=== PATIENT | female | born 1940 | race Caucasian/White ===

== ENCOUNTER 2023-09-05 20:45 | Inpatient (IN) | payer MEDICARE ==
[~2023-09-05] VITALS: Ht 160 cm; Wt 61.0 kg
[~2023-09-05 20:45] MED LIST: AMAN100 PO; CARBIDOPA-LEVO1 EA15 PO; FAMO20 PO; LEVO-T75 MC1 PO; OXYC5 PO; ROPINIROLE HCL2 M1 PO; SULTRIDS PO; ZOLOFT10013 PO
[2023-09-05] MEDS ORDERED: NS 1,000 ML IV SCH (23:50)
[2023-09-06 00:14] LABS: BASOPHILS ABSOLUTE AUTO 0.13 K/mm3 (0.00-0.23); BASOPHILS PERCENT AUTO 1 % (0-2); EOSINOPHILS ABSOLUTE AUTO 0.27 K/mm3 (0.00-0.68); EOSINOPHILS PERCENT AUTO 3 % (0-6); Hematocrit 39.2 % (33.0-51.0); Hemoglobin 12.5 g/dL (11.5-16.0); IMMATURE GRAN ABSOLUTE AUTO 0.07 K/mm3 (0.00-0.10); IMMATURE GRAN PERCENT AUTO 1 % (0-1); LYMPHOCYTES ABSOLUTE AUTO 1.69 K/mm3 (0.84-5.20); LYMPHOCYTES PERCENT AUTO 17 % (21-46); MONOCYTES ABSOLUTE AUTO 1.18 K/mm3 (0.16-1.47); MONOCYTES PERCENT AUTO 12 % (4-13); Mean Corpuscular HGB 27.6 pg (26.0-34.0); Mean Corpuscular HGB Conc 31.9 g/dL (31.5-36.5); Mean Corpuscular Volume 87 fL (80-100); Mean Platelet Volume 9.1 fL (9.1-12.4); NEUTROPHILS ABSOLUTE AUTO 6.44 K/mm3 (1.96-9.15); NEUTROPHILS PERCENT AUTO 66 % (41-73); Platelet Count 195 K/mm3 (150-400); RDW Coefficient Variation 14.3 % (11.7-14.2); RDW Standard Deviation 45.9 fL (35.1-46.3); Red Blood Cell Count 4.53 M/mm3 (3.80-5.20); White Blood Cell Count 9.78 K/mm3 (4.00-11.30)
[2023-09-06 00:33] LABS: Albumin, Blood 3.7 g/dL (3.4-5.0); Bilirubin, Total 0.8 mg/dL (0.1-1.0); Bun/Creatinine Ratio 22.6 (12.0-20.0); Calcium, Blood 9.1 mg/dL (8.5-10.1); Creatinine, Blood 1.15 mg/dL (0.40-1.00); Globulin, Blood 3.6 g/dL (2.2-4.0); Potassium, Blood 4.2 mmol/L (3.5-5.5); Total Protein, Blood 7.3 g/dL (6.4-8.2)
[2023-09-06 00:40] LABS: Source, Urine Straight Cath
[2023-09-06 00:44] LABS: Bilirubin, Urine Neg (Neg); Blood, Urine 1+ (Neg); Glucose Qualitative, Urine Neg (Neg); Ketones, Urine 1+ (Neg); Leukocyte Esterase, Urine 2+ (Neg); Nitrite, Urine Neg (Neg); Protein, Urine 1+ (Neg); Specific Gravity, Urine 1.025 (1.003-1.022); Urobilinogen, Urine NORM (Normal)
[2023-09-06 00:49] LABS: Appearance, Urine Hazy (Clear); Color, Urine Yellow (P-Yellow)
[2023-09-06 00:50] LABS: Bacteria Few /hpf; Red Blood Cells, Urine 0-2 /hpf (0-2); Squamous Epithelial Cells Few /hpf (Few)
[2023-09-06] MEDS ORDERED: CefTRIAXone Sodium 1,000 MG in NS 50 ML IV ONE (00:55)
[2023-09-06] MEDS ORDERED: Ondansetron HCl 2 MG / ML 2ML Vial IV PRN (01:15)
[2023-09-06] MEDS ORDERED: NS 1,000 ML IV ONE (01:15)
[2023-09-06 02:55] VITALS: BP 128/88
[2023-09-06 03:13] LABS: U Amphetamine Screen Not Detected; U Barbituate Screen Not Detected; U Benzodiazapine Screen DETECTED; U Buprenorphine Screen Not Detected; U Cannabinoids Screen Not Detected; U Cocaine Screen Not Detected; U Methadone Screen Not Detected; U Methamphetamine Screen Not Detected; U Opiates Screen Not Detected; U Oxycodone Screen Not Detected; U Phencyclidine Screen Not Detected
[2023-09-06 03:23] LABS: BASOPHILS ABSOLUTE AUTO 0.08 K/mm3 (0.00-0.23); BASOPHILS PERCENT AUTO 1 % (0-2); EOSINOPHILS ABSOLUTE AUTO 0.24 K/mm3 (0.00-0.68); EOSINOPHILS PERCENT AUTO 3 % (0-6); Hematocrit 37.1 % (33.0-51.0); Hemoglobin 11.8 g/dL (11.5-16.0); IMMATURE GRAN ABSOLUTE AUTO 0.05 K/mm3 (0.00-0.10); IMMATURE GRAN PERCENT AUTO 1 % (0-1); LYMPHOCYTES ABSOLUTE AUTO 1.48 K/mm3 (0.84-5.20); LYMPHOCYTES PERCENT AUTO 17 % (21-46); MONOCYTES ABSOLUTE AUTO 1.09 K/mm3 (0.16-1.47); MONOCYTES PERCENT AUTO 13 % (4-13); Mean Corpuscular HGB 27.6 pg (26.0-34.0); Mean Corpuscular HGB Conc 31.8 g/dL (31.5-36.5); Mean Corpuscular Volume 87 fL (80-100); Mean Platelet Volume 9.1 fL (9.1-12.4); NEUTROPHILS PERCENT AUTO 66 % (41-73); Platelet Count 178 K/mm3 (150-400); RDW Coefficient Variation 14.4 % (11.7-14.2); RDW Standard Deviation 45.9 fL (35.1-46.3); Red Blood Cell Count 4.27 M/mm3 (3.80-5.20); White Blood Cell Count 8.54 K/mm3 (4.00-11.30)
[2023-09-06 03:31] LABS: Base Excess Venous -4.9 mmol/L; Bicarbonate Venous 20.7 mmol/L (24.0-30.0); PCO2 Venous 35.3 mmHg (38-42); pH Blood Venous 7.37 (7.34-7.37)
[2023-09-06 03:38] LABS: International Normalized Ratio 1.05; Prothrombin Time Results 11.2 Sec (9.7-11.5)
[2023-09-06 03:53] LABS: Albumin, Blood 3.3 g/dL (3.4-5.0); Albumin/Globulin Ratio 0.9 (0.8-1.8); Bilirubin, Total 0.7 mg/dL (0.1-1.0); Bun/Creatinine Ratio 23.5 (12.0-20.0); Calcium, Blood 8.8 mg/dL (8.5-10.1); Creatinine, Blood 1.02 mg/dL (0.40-1.00); Globulin, Blood 3.5 g/dL (2.2-4.0); Potassium, Blood 4.1 mmol/L (3.5-5.5); Total Protein, Blood 6.8 g/dL (6.4-8.2)
[2023-09-06] MEDS ORDERED: Levodopa/Carbidopa 100 / 25 MG Tab PO SCH ×2 (06:26→10:00)
[2023-09-06 06:47] VITALS: BP 170/71
[2023-09-06 07:30] VITALS: BP 120/48
[2023-09-06 07:31] VITALS: BP 120/48
--- NOTE | 2023-09-06 07:45 | NUR ---
Patient was admitted via stretcher from ED at 0245. Patient is oriented to self and birthdate. Pt does follow commands. Patient is difficult to understand. She mumbles. Pt was discharged 6 days ago due to fall with fx of rt wrist. Pt has multiple old bruising of rt face/neck, rt upper arm and elbow, and rt hip. Splint deandre wrap to rt wrist. Pt received IV bolus of NS then IV of NS 75cc/hr. Pt oriented to room, call light, pt is a high fall risk. Bed alarm on. freq monitoring.
--- NOTE | 2023-09-06 08:00 | NUR ---
Per Dr. zapien patient was bladder scanned for aprox. 400cc. Pt has not yet voided since arriving to floor.
--- NOTE | 2023-09-06 08:04 | NUR ---
0662 Patient was found on floor by Deidra Chavarria RN when bed alarm went off. Patient said she was getting up to go to the BR. Pt c/o left hip hurting. Pt was assisted back to bed. Dr. Oconnor evaluated pt at bedside. New orders for imaging. Pt down via cart to imaging. Deidra Mendoza is the on coming nurse and she has received report on pt and is aware of fall. She was asked by this casualty underwriter to notify family of fall, and of any injury.
[2023-09-06] MEDS ORDERED: Acetaminophen 325 MG TABLET PO ONE (08:35)
[2023-09-06] MEDS ORDERED: Amantadine HCl 100 MG Cap PO SCH (09:00)
[2023-09-06] MEDS ORDERED: OxyCODONE HCL 5 MG TAB PO PRN (09:00)
[2023-09-06] MEDS ORDERED: Sertraline HCl 50 MG Tab PO SCH (09:00)
[2023-09-06] MEDS ORDERED: HYDROmorphone HCl/Pf 1MG SYR IV PRN (11:55)
--- NOTE | 2023-09-06 15:02 | NUR ---
PATIENT HAS BEEN ON CAMERA SINCE 0730 TODAY DUE TO FALL THIS AM AND TRYING TO PULL AT IV. FAMILY PRESENT IN THE ROOM, AND DAUGHTER. THEY HAVE COMMITED TO NOT LEAVING THE PATIENT ALONE. CAMERA DISCONTINUED AT 1503 TODAY. ALPHONSO LOZAN[facility] NOTIFIED.
[2023-09-06 16:05] VITALS: BP 137/72
[2023-09-06 19:26] VITALS: BP 144/83
[2023-09-06] MEDS ORDERED: FentaNYL Citrate 50 MCG/ML 2 ML Injection IV PRN (20:00)
--- NOTE | 2023-09-06 20:26 | NUR ---
SHIFT SUMMARY PATIENT WITH SOME SHADOW HALLUCINATIONS, PLACED IN YELLOW GOWN AFTER FALL. SHE HAD VIRTUAL MONITORING ON HER IN THE MORNING TO ALERT IF PATIENT TOUCHING IV OR TRYING TO GET OUT OF BED. VIRTUAL MONITOR DISCONTINUED AFTER AND DAUGHTER PRESENT IN ROOM AND THEY BOTH COMMITED TO TAKING TURNS MAKING SURE SHE IS NOT LEFT ALONE. BED ALARM ON. CALL LIGHT IN REACH. PATIENT WITH PAIN TODAY MEDICATED PER EMAR, LOWEST PAIN LEVEL TODAY WAS 6/10. FAMILY ABLE TO MAKE NEEDS KNOWN.
[2023-09-06] MEDS ORDERED: CefTRIAXone Sodium 1,000 MG in NS 100 ML IV SCH (21:00)
[2023-09-06] MEDS ORDERED: Levodopa/Carbidopa 100/25 MG Tab *CR PO SCH (21:00)
[2023-09-06] MEDS ORDERED: NS 250 ML IV PRN (21:45)
[2023-09-07 04:32] VITALS: BP 145/62
[2023-09-07] MEDS ORDERED: Levothyroxine Sodium 0.075 MG Tab PO SCH (06:00)
[2023-09-07 07:37] VITALS: BP 141/63
[2023-09-07 07:50] LABS: BASOPHILS ABSOLUTE AUTO 0.12 K/mm3 (0.00-0.23); BASOPHILS PERCENT AUTO 1 % (0-2); EOSINOPHILS ABSOLUTE AUTO 0.17 K/mm3 (0.00-0.68); EOSINOPHILS PERCENT AUTO 2 % (0-6); Hematocrit 38.5 % (33.0-51.0); Hemoglobin 12.5 g/dL (11.5-16.0); IMMATURE GRAN ABSOLUTE AUTO 0.11 K/mm3 (0.00-0.10); IMMATURE GRAN PERCENT AUTO 1 % (0-1); LYMPHOCYTES ABSOLUTE AUTO 1.12 K/mm3 (0.84-5.20); LYMPHOCYTES PERCENT AUTO 11 % (21-46); MONOCYTES ABSOLUTE AUTO 0.99 K/mm3 (0.16-1.47); MONOCYTES PERCENT AUTO 9 % (4-13); Mean Corpuscular HGB 28.1 pg (26.0-34.0); Mean Corpuscular HGB Conc 32.5 g/dL (31.5-36.5); Mean Corpuscular Volume 87 fL (80-100); Mean Platelet Volume 9.1 fL (9.1-12.4); NEUTROPHILS ABSOLUTE AUTO 8.16 K/mm3 (1.96-9.15); NEUTROPHILS PERCENT AUTO 77 % (41-73); Platelet Count 185 K/mm3 (150-400); RDW Coefficient Variation 14.2 % (11.7-14.2); RDW Standard Deviation 45.2 fL (35.1-46.3); Red Blood Cell Count 4.45 M/mm3 (3.80-5.20); White Blood Cell Count 10.67 K/mm3 (4.00-11.30)
[2023-09-07 08:47] LABS: Albumin, Blood 3.5 g/dL (3.4-5.0); Bilirubin, Total 1.3 mg/dL (0.1-1.0); Bun/Creatinine Ratio 21.2 (12.0-20.0); Calcium, Blood 9.2 mg/dL (8.5-10.1); Creatinine, Blood 0.71 mg/dL (0.40-1.00); Globulin, Blood 3.6 g/dL (2.2-4.0); Potassium, Blood 3.7 mmol/L (3.5-5.5); Total Protein, Blood 7.1 g/dL (6.4-8.2)
[2023-09-07 16:06] VITALS: BP 144/62
[2023-09-07] MEDS ORDERED: Bupivacaine 0.5% HCl 5 MG/ML 30MLVIAL ONE (16:16)
[2023-09-07] MEDS ORDERED: EpiNEPhrine 1 MG/1 ML 1ML Vial ONE (16:16)
--- NOTE | 2023-09-07 18:59 | NUR ---
SHIFT SUMMARY PATIENT WITH NO ACUTE EVENTS TODAY. MEDICATED FOR PAIN PER EMAR. PAIN DOWN LOWEST TO 4/10 TODAY. SHE IS STILL HALLUCINATING BUT LESS THAN YESTERDAY AND IS MORE ALERT AND SHARP WITH VERBAL RESPONSE TODAY, MAKING JOKES AT TIMES. SHE DOES CRY WHEN DAUGHTER OR ARE NOT PRESENT, EXPRESSES COMFORT WHEN AT LEAST ONE OF THEM IS WITH HER. BED IN LOW POSITION, CALL LIGHT IN REACH, DAUGHTER CURRENTLY BEDSIDE.
[2023-09-07 20:21] VITALS: BP 116/77
[2023-09-08] VITALS (21 sets, daily range): BP systolic 112–185; BP diastolic 57–148
[2023-09-08 05:43] LABS: BASOPHILS ABSOLUTE AUTO 0.08 K/mm3 (0.00-0.23); BASOPHILS PERCENT AUTO 1 % (0-2); EOSINOPHILS ABSOLUTE AUTO 0.24 K/mm3 (0.00-0.68); EOSINOPHILS PERCENT AUTO 2 % (0-6); Hematocrit 37.5 % (33.0-51.0); Hemoglobin 12.1 g/dL (11.5-16.0); IMMATURE GRAN ABSOLUTE AUTO 0.09 K/mm3 (0.00-0.10); IMMATURE GRAN PERCENT AUTO 1 % (0-1); LYMPHOCYTES ABSOLUTE AUTO 0.99 K/mm3 (0.84-5.20); LYMPHOCYTES PERCENT AUTO 10 % (21-46); MONOCYTES ABSOLUTE AUTO 1.03 K/mm3 (0.16-1.47); MONOCYTES PERCENT AUTO 10 % (4-13); Mean Corpuscular HGB 27.7 pg (26.0-34.0); Mean Corpuscular HGB Conc 32.3 g/dL (31.5-36.5); Mean Corpuscular Volume 86 fL (80-100); NEUTROPHILS ABSOLUTE AUTO 7.99 K/mm3 (1.96-9.15); NEUTROPHILS PERCENT AUTO 77 % (41-73); Platelet Count 191 K/mm3 (150-400); RDW Coefficient Variation 14.4 % (11.7-14.2); RDW Standard Deviation 44.7 fL (35.1-46.3); Red Blood Cell Count 4.37 M/mm3 (3.80-5.20); White Blood Cell Count 10.42 K/mm3 (4.00-11.30)
[2023-09-08 06:16] LABS: Albumin, Blood 3.2 g/dL (3.4-5.0); Albumin/Globulin Ratio 0.8 (0.8-1.8); Bilirubin, Total 0.9 mg/dL (0.1-1.0); Bun/Creatinine Ratio 25.4 (12.0-20.0); Creatinine, Blood 0.75 mg/dL (0.40-1.00); Globulin, Blood 3.8 g/dL (2.2-4.0); Potassium, Blood 3.6 mmol/L (3.5-5.5)
[2023-09-08] MEDS ORDERED: Lactated Ringer's 1,000 ML IV SCH (13:10)
[2023-09-08] MEDS ORDERED: Tranexamic Acid 100 ML IV SCH (13:35)
--- NOTE | 2023-09-08 13:35 | NUR ---
PT HAS 20G IV TO LEFT AC THAT FLUSHES WELL AND FLOWS TO GRAVITY.
[2023-09-08] MEDS ORDERED: CeFAZolin Sodium 2,000 MG in NS 100 ML IV SCH (13:40)
--- NOTE | 2023-09-08 13:43 | NUR ---
PT BROUGHT FROM FLOOR TO DAY SURGERY FOR PROCEDURE. PT SPOUSE AT BEDSIDE. History, Chart, Medications and Allergies reviewed before start of procedure. Lungs clear T/O to Auscultation. Patient confirms NPO status and agrees with scheduled surgery. Pre-Op teaching done. Pt verbalizes understanding. NO CHLORHEXADINE PREP OR PAS APPLIED, PT TOO PAINFUL. OR PRODUCT INFO SPECIALIST NOTIFIED. AWAITING ANESTHESIA CONSULT.
[2023-09-08] MEDS ORDERED: propofoL 20 ML IV ONE (14:03)
[2023-09-08] MEDS ORDERED: FentaNYL Citrate 50 MCG/ML 2 ML Injection ONE (14:03)
[2023-09-08] MEDS ORDERED: Rocuronium Bromide 10 MG/ML 5ML Injection IV ONE (14:04)
[2023-09-08] MEDS ORDERED: Phenylephrine HCl 100 MCG/ML-NS 10MLSYR (1MG/10ML) ONE (14:04)
[2023-09-08] MEDS ORDERED: Dexamethasone Sod Phos 10 MG/ML 1ML VIAL ONE (14:33)
[2023-09-08] MEDS ORDERED: Ondansetron HCl 2 MG / ML 2ML Vial ONE (14:33)
[2023-09-08] MEDS ORDERED: Sugammadex Sodium 200 MG/2ML SDV (100 MG/ML) ONE (14:33)
--- NOTE | 2023-09-08 16:27 | NUR ---
HAVING DIFFICULT TIME OBTAINING ACURATE BP DUE TO PT MOVING/TENSION, AND GRABBING AT BP CUFF, RN CALLED FOR REPORT RM 330, RN SAID SHE WAS BEING TRANSFERED TO SURGICAL FLOOR, WILL INVESTIGATE FURTHER
[2023-09-08] MEDS ORDERED: NS 1,000 ML IV SCH (17:05)
--- NOTE | 2023-09-08 20:11 | NUR ---
SHIFT SUMMARY PATIENT ALERT BUT CONFUSED, HALLUCINATING AND PICKING AT HER R ARM CAST. PATIENT TO HAVE R HIP PINNED TODAY. FAMILY VERY UPSET THAT PATIENT DELAYED UNTIL AROUND NOON. DAUGHTER TO LIFE PARTNER BECOMING VERBALY ABUSIVE WITH STAFF. LIFE PARTNER EDUCATED ON CONDUCT AND THAT HER DAUGHTER WOULD NOT BE ABLE TO STAY IF SHE IS AGGRESSIVE AND VERBALY ABUSIVE TO STAFF. LIFE PARTNER UNDERSTANDING. PATIENT TAKEN TO OR VIA BED ABOUT 1PM. PATIENT RETURNED TO HER ROOM ABOUT 4 PM. FAMILY WITH PATIENT. PATIENT CONTINUES TO HALLUCINATE AND BE TEARFUL ON ARRIVAL FROM SURGERY. AFTER ABOUT AN HOUR PATIENT WAS ABLE TO REST. BP HAD TO BE DONE MANUALLY FOR A FEW TIMES BECAUSE OF JERKS AND TREMORS.
[2023-09-09 01:34] VITALS: BP 134/64
[2023-09-09 05:55] VITALS: BP 154/66
[2023-09-09 06:10] LABS: BASOPHILS ABSOLUTE AUTO 0.04 K/mm3 (0.00-0.23); BASOPHILS PERCENT AUTO 1 % (0-2); EOSINOPHILS ABSOLUTE AUTO 0.01 K/mm3 (0.00-0.68); EOSINOPHILS PERCENT AUTO 0 % (0-6); Hematocrit 31.3 % (33.0-51.0); Hemoglobin 9.9 g/dL (11.5-16.0); IMMATURE GRAN ABSOLUTE AUTO 0.09 K/mm3 (0.00-0.10); IMMATURE GRAN PERCENT AUTO 1 % (0-1); LYMPHOCYTES ABSOLUTE AUTO 0.81 K/mm3 (0.84-5.20); LYMPHOCYTES PERCENT AUTO 9 % (21-46); MONOCYTES ABSOLUTE AUTO 0.94 K/mm3 (0.16-1.47); MONOCYTES PERCENT AUTO 11 % (4-13); Mean Corpuscular HGB 27.7 pg (26.0-34.0); Mean Corpuscular HGB Conc 31.6 g/dL (31.5-36.5); Mean Corpuscular Volume 87 fL (80-100); Mean Platelet Volume 9.1 fL (9.1-12.4); NEUTROPHILS ABSOLUTE AUTO 6.98 K/mm3 (1.96-9.15); NEUTROPHILS PERCENT AUTO 79 % (41-73); Platelet Count 177 K/mm3 (150-400); RDW Coefficient Variation 14.4 % (11.7-14.2); RDW Standard Deviation 46.5 fL (35.1-46.3); Red Blood Cell Count 3.58 M/mm3 (3.80-5.20); White Blood Cell Count 8.87 K/mm3 (4.00-11.30)
--- NOTE | 2023-09-09 06:15 | NUR ---
SHIFT SUMMARY: PATIENT SLEPT FROM SHIFT CHANGE TO END OF SHIFT, WITH INTERRUPTIONS OCCASIONALLY FOR TURNS AND MEDS. DR. BUSH RECOMMENDED GIVING MEDS PO IF SCHEDULED; PO MEDS GIVEN AT NIGHT; NPO DIET ORDER TO BE RECONSIDERED DURING DAY SHIFT PER ELEAZAR CHANDRA RECOMMENDATION. PATIENT RIGHT PUPIL NOTED TO BE A MM LARGER THAN LEFT. LITTLE TO NO TALK OR COOPERATION FROM PATIENT, MOSTLY ORIENTED TO SELF. ORIF AND HIP SURGERY INTACT THROUGHOUT SHIFT.
[2023-09-09 06:39] LABS: Alanine Aminotransfer (ALT/SGP <6 U/L (12-78); Albumin, Blood 2.5 g/dL (3.4-5.0); Albumin/Globulin Ratio 0.8 (0.8-1.8); Alk Phos 100 U/L (50-136); Anion Gap 15 mmol/L (3-11); Aspartate Aminotrans (AST/SGOT 28 U/L (12-37); Bilirubin, Total 0.7 mg/dL (0.1-1.0); Blood Urea Nitrogen 20 mg/dL (8-24); Bun/Creatinine Ratio 29.1 (12.0-20.0); CO2, Blood 18 mmol/L (21-32); Calcium, Blood 7.9 mg/dL (8.5-10.1); Chloride, Blood 116 mmol/L (98-108); Creatinine, Blood 0.69 mg/dL (0.40-1.00); Globulin, Blood 3.2 g/dL (2.2-4.0); Glomerular Filtration Rate 87 (60-); Glucose, Blood 98 mg/dL (70-99); Potassium, Blood 3.6 mmol/L (3.5-5.5); Sodium, Blood 145 mmol/L (136-145); Total Protein, Blood 5.7 g/dL (6.4-8.2)
[2023-09-09 07:15] VITALS: BP 145/64
[2023-09-09] MEDS ORDERED: CeFAZolin Sodium 2,000 MG in NS 100 ML IV SCH (10:30)
[2023-09-09 16:40] VITALS: BP 134/56
--- NOTE | 2023-09-09 19:25 | NUR ---
more alert and oriented today, more alert and interactive, daughter at bedside helpful with care. vss, medicated for pain, pt work with patient, bruising on face and body improved, call light with in the reach
[2023-09-09 19:54] VITALS: BP 124/55
[2023-09-10 04:40] VITALS: BP 155/70
[2023-09-10 05:40] LABS: BASOPHILS ABSOLUTE AUTO 0.05 K/mm3 (0.00-0.23); BASOPHILS PERCENT AUTO 1 % (0-2); EOSINOPHILS ABSOLUTE AUTO 0.31 K/mm3 (0.00-0.68); EOSINOPHILS PERCENT AUTO 3 % (0-6); Hematocrit 30.7 % (33.0-51.0); Hemoglobin 9.8 g/dL (11.5-16.0); IMMATURE GRAN PERCENT AUTO 1 % (0-1); LYMPHOCYTES ABSOLUTE AUTO 1.42 K/mm3 (0.84-5.20); LYMPHOCYTES PERCENT AUTO 16 % (21-46); MONOCYTES ABSOLUTE AUTO 0.77 K/mm3 (0.16-1.47); MONOCYTES PERCENT AUTO 8 % (4-13); Mean Corpuscular HGB 27.7 pg (26.0-34.0); Mean Corpuscular HGB Conc 31.9 g/dL (31.5-36.5); Mean Corpuscular Volume 87 fL (80-100); Mean Platelet Volume 9.3 fL (9.1-12.4); NEUTROPHILS PERCENT AUTO 71 % (41-73); Platelet Count 182 K/mm3 (150-400); RDW Coefficient Variation 14.5 % (11.7-14.2); RDW Standard Deviation 46.3 fL (35.1-46.3); Red Blood Cell Count 3.54 M/mm3 (3.80-5.20); White Blood Cell Count 9.15 K/mm3 (4.00-11.30)
--- NOTE | 2023-09-10 06:03 | NUR ---
SHIFT SUMMARY: PATIENT FULLY ORIENTED, PLEASANT, COOPERATIVE. STILL BEDREST AFTER R HIP PIN SURGERY. NEEDED SUBLIMAZE FOR PAIN IN HIP DURING THE NIGHT. PARTNER SLEPT BY BEDSIDE. 20G LUE PIV INSERTED VIA ULTRASOUND DURING THE NIGHT, IV ABX AND IV FLUIDS ADMINISTERED.
[2023-09-10 06:28] LABS: Alanine Aminotransfer (ALT/SGP <6 U/L (12-78); Albumin, Blood 2.4 g/dL (3.4-5.0); Albumin/Globulin Ratio 0.8 (0.8-1.8); Alk Phos 94 U/L (50-136); Anion Gap 11 mmol/L (3-11); Aspartate Aminotrans (AST/SGOT 25 U/L (12-37); Bilirubin, Total 0.5 mg/dL (0.1-1.0); Blood Urea Nitrogen 16 mg/dL (8-24); Bun/Creatinine Ratio 25.9 (12.0-20.0); CO2, Blood 22 mmol/L (21-32); Chloride, Blood 111 mmol/L (98-108); Creatinine, Blood 0.62 mg/dL (0.40-1.00); Globulin, Blood 3.1 g/dL (2.2-4.0); Glomerular Filtration Rate 89 (60-); Glucose, Blood 108 mg/dL (70-99); Potassium, Blood 3.5 mmol/L (3.5-5.5); Sodium, Blood 140 mmol/L (136-145); Total Protein, Blood 5.5 g/dL (6.4-8.2)
[2023-09-10 08:32] VITALS: BP 165/67
[2023-09-10] MEDS ORDERED: Enoxaparin 40 MG/0.4 ML SYR SC SCH (09:00)
[2023-09-10 09:29] VITALS: BP 142/61
[2023-09-10 15:19] VITALS: BP 146/70
--- NOTE | 2023-09-10 16:01 | NUR ---
DAYSHIFT SUMMARY Patient alert & oriented x4, doing well this shift. Reports minimal pain, Oxycodone given once for pain this shift. Patient resting comfortably, did not get OOB this shift. Bed alarm activated and audible. Plan to DC to SNF.
--- NOTE | 2023-09-10 18:21 | NUR ---
DAY SHIFT SUMMARY: ASSUMED CARE OF PATIENT FROM ANNIE SANON. PT A&O X4; CALM AND COOPERATIVE WITH CARE. NO C/O PAIN SINCE ASSUMING CARE AT 1600. NO ATTEMPTS TO GET OOB; FAMILY IN ROOM. EXPECTED D/C TO SNF. BED LOW & LOCKED; CALL LIGHT WITHIN REACH. WCTM.
[2023-09-10 19:41] VITALS: BP 151/85
[2023-09-11 04:38] VITALS: BP 176/71
--- NOTE | 2023-09-11 06:21 | NUR ---
SHIFT SUMMARY: PATIENT FULLY ORIENTED, COOPERATIVE, FREQUENTLY TIRED. FAMILY AT BEDSIDE. PRN ROXICODONE GIVEN FOR PAIN. DOUGLAS CATHETER INTACT, LIMITED RANGE OF MOTION STILL IN RIGHT HIP. PATIENT SLEPT MODERATELY WELL AT NIGHT WITH THREE INTERRUPTIONS IN SLEEP.
[2023-09-11 06:34] LABS: Albumin, Blood 2.4 g/dL (3.4-5.0); Albumin/Globulin Ratio 0.7 (0.8-1.8); Bilirubin, Total 0.7 mg/dL (0.1-1.0); Bun/Creatinine Ratio 19.2 (12.0-20.0); Calcium, Blood 8.3 mg/dL (8.5-10.1); Creatinine, Blood 0.57 mg/dL (0.40-1.00); Globulin, Blood 3.5 g/dL (2.2-4.0); Potassium, Blood 3.6 mmol/L (3.5-5.5); Total Protein, Blood 5.9 g/dL (6.4-8.2)
[2023-09-11 07:15] LABS: BASOPHILS ABSOLUTE AUTO 0.04 K/mm3 (0.00-0.23); BASOPHILS PERCENT AUTO 1 % (0-2); EOSINOPHILS ABSOLUTE AUTO 0.39 K/mm3 (0.00-0.68); EOSINOPHILS PERCENT AUTO 5 % (0-6); Hematocrit 34.6 % (33.0-51.0); Hemoglobin 11.1 g/dL (11.5-16.0); IMMATURE GRAN ABSOLUTE AUTO 0.08 K/mm3 (0.00-0.10); IMMATURE GRAN PERCENT AUTO 1 % (0-1); LYMPHOCYTES ABSOLUTE AUTO 0.93 K/mm3 (0.84-5.20); LYMPHOCYTES PERCENT AUTO 11 % (21-46); MONOCYTES ABSOLUTE AUTO 0.76 K/mm3 (0.16-1.47); MONOCYTES PERCENT AUTO 9 % (4-13); Mean Corpuscular HGB 27.5 pg (26.0-34.0); Mean Corpuscular HGB Conc 32.1 g/dL (31.5-36.5); Mean Corpuscular Volume 86 fL (80-100); Mean Platelet Volume 8.9 fL (9.1-12.4); NEUTROPHILS ABSOLUTE AUTO 6.02 K/mm3 (1.96-9.15); NEUTROPHILS PERCENT AUTO 73 % (41-73); Platelet Count 179 K/mm3 (150-400); RDW Coefficient Variation 13.8 % (11.7-14.2); RDW Standard Deviation 43.6 fL (35.1-46.3); Red Blood Cell Count 4.04 M/mm3 (3.80-5.20); White Blood Cell Count 8.22 K/mm3 (4.00-11.30)
[2023-09-11 08:31] VITALS: BP 175/64
[2023-09-11] MEDS ORDERED: Polyethylene Glycol 3350 17 gm PO PRN (11:10)
[2023-09-11 15:53] VITALS: BP 150/74
--- NOTE | 2023-09-11 18:46 | NUR ---
PATIENT A/OX3-4 THIS SHIFT. VSS, ON RA. SR ON TELEMETRY. OXYCODONE GIVEN TO TREAT R HIP PAIN. FAMILY AT BEDSIDE THROUGHOUT THE DAY AND NIGHT. WORKING WITH PT/OT. BOWEL CARE STARTED TODAY, NO BM SINCE August. NO OTHER NEW CONCERNS THIS SHIFT. AWAITING DC TO SNF.
[2023-09-11 19:41] VITALS: BP 140/59
[2023-09-12 02:44] VITALS: BP 135/62
[2023-09-12 05:34] LABS: Albumin, Blood 2.4 g/dL (3.4-5.0); Albumin/Globulin Ratio 0.7 (0.8-1.8); Bilirubin, Total 0.7 mg/dL (0.1-1.0); Bun/Creatinine Ratio 19.7 (12.0-20.0); Calcium, Blood 8.7 mg/dL (8.5-10.1); Creatinine, Blood 0.61 mg/dL (0.40-1.00); Globulin, Blood 3.6 g/dL (2.2-4.0); Potassium, Blood 3.9 mmol/L (3.5-5.5)
--- NOTE | 2023-09-12 05:59 | NUR ---
SHIFT SUMMARY EGG BUYER&OX4 AND ANSWERS QUESTIONS APPROPRIATELY. PT RECEIVED HS MEDICATIONS AND IV ANTIBIOTICS. MEDICATED FOR PAIN X2 PER EMAR. PT RECEIVED PRUNE JUICE WITH MIRALAX, NO BOWEL MOVEMENT RECORDED SINCE 09/06. VSS, NO COMPLAINTS OF CP/PRESSURE OR SOB. PT ON TELEMETRY RUNNING NSR. NO ACUTE EVENTS AT THIS TIME. PT SPENT MOST OF THE SHIFT WITH EYES CLOSED AND RESPIRATIONS EVEN/UNLABORED. FALL PRECAUTIONS IN PLACE AND CALL LIGHT IN REACH.
[2023-09-12 06:22] LABS: BASOPHILS ABSOLUTE AUTO 0.05 K/mm3 (0.00-0.23); BASOPHILS PERCENT AUTO 1 % (0-2); EOSINOPHILS ABSOLUTE AUTO 0.51 K/mm3 (0.00-0.68); EOSINOPHILS PERCENT AUTO 7 % (0-6); Hematocrit 33.6 % (33.0-51.0); Hemoglobin 11.1 g/dL (11.5-16.0); IMMATURE GRAN ABSOLUTE AUTO 0.11 K/mm3 (0.00-0.10); IMMATURE GRAN PERCENT AUTO 1 % (0-1); LYMPHOCYTES ABSOLUTE AUTO 1.25 K/mm3 (0.84-5.20); LYMPHOCYTES PERCENT AUTO 16 % (21-46); MONOCYTES ABSOLUTE AUTO 0.75 K/mm3 (0.16-1.47); MONOCYTES PERCENT AUTO 10 % (4-13); Mean Corpuscular HGB 28.1 pg (26.0-34.0); Mean Corpuscular Volume 85 fL (80-100); NEUTROPHILS ABSOLUTE AUTO 5.22 K/mm3 (1.96-9.15); NEUTROPHILS PERCENT AUTO 66 % (41-73); RDW Coefficient Variation 13.7 % (11.7-14.2); RDW Standard Deviation 42.9 fL (35.1-46.3); Red Blood Cell Count 3.95 M/mm3 (3.80-5.20); White Blood Cell Count 7.89 K/mm3 (4.00-11.30)
[2023-09-12 06:44] LABS: Platelet Count 220 K/mm3 (150-400)
[2023-09-12 07:22] VITALS: BP 142/71
[2023-09-12] MEDS ORDERED: Polyethylene Glycol 3350 17 gm PO SCH (10:00)
[2023-09-12] MEDS ORDERED: Acetaminophen 500 MG Tab PO SCH (10:00)
[2023-09-12] MEDS ORDERED: Docusate Sodium/Senna 1 Tab PO PRN (10:00)
[2023-09-12] MEDS ORDERED: Docusate Sodium/Senna 1 Tab PO ONE (10:00)
[2023-09-12 15:22] VITALS: BP 144/64
--- NOTE | 2023-09-12 17:21 | NUR ---
PATIENT WAS UP TODAY WITH PT/OT WITH FWW AND 2 ASSIST. PAIN BETTER CONTROLLED WITH SCHEDULED TYLENOL AND OXYCODONE FOR BREAKTHROUGH. FAMILY AT BEDSIDE THROUGHOUT THE DAY AND ASSIST WITH CARE. DOUGLAS PATENT AND DRAINING TO GRAVITY. NO BM SINCE 09/06, BOWEL CARE GIVEN THIS SHIFT. PATIENT A/OX4 AND ABLE TO MAKE NEEDS KNOWN.
[2023-09-12 19:42] VITALS: BP 132/68
[2023-09-12] MEDS ORDERED: Lactobacil 2-S.Thermo-Bifido 1 1 Cap PO SCH (21:00)
[2023-09-13 03:16] VITALS: BP 143/75
[2023-09-13 06:18] LABS: BASOPHILS ABSOLUTE AUTO 0.08 K/mm3 (0.00-0.23); BASOPHILS PERCENT AUTO 1 % (0-2); EOSINOPHILS ABSOLUTE AUTO 0.47 K/mm3 (0.00-0.68); EOSINOPHILS PERCENT AUTO 5 % (0-6); Hematocrit 34.4 % (33.0-51.0); Hemoglobin 10.9 g/dL (11.5-16.0); IMMATURE GRAN ABSOLUTE AUTO 0.12 K/mm3 (0.00-0.10); IMMATURE GRAN PERCENT AUTO 1 % (0-1); LYMPHOCYTES ABSOLUTE AUTO 1.24 K/mm3 (0.84-5.20); LYMPHOCYTES PERCENT AUTO 14 % (21-46); MONOCYTES ABSOLUTE AUTO 0.77 K/mm3 (0.16-1.47); MONOCYTES PERCENT AUTO 9 % (4-13); Mean Corpuscular HGB 27.5 pg (26.0-34.0); Mean Corpuscular HGB Conc 31.7 g/dL (31.5-36.5); Mean Corpuscular Volume 87 fL (80-100); Mean Platelet Volume 8.9 fL (9.1-12.4); NEUTROPHILS ABSOLUTE AUTO 5.96 K/mm3 (1.96-9.15); NEUTROPHILS PERCENT AUTO 69 % (41-73); Platelet Count 208 K/mm3 (150-400); RDW Coefficient Variation 13.9 % (11.7-14.2); RDW Standard Deviation 44.5 fL (35.1-46.3); Red Blood Cell Count 3.97 M/mm3 (3.80-5.20); White Blood Cell Count 8.64 K/mm3 (4.00-11.30)
--- NOTE | 2023-09-13 06:19 | NUR ---
SHIFT SUMMARY PT A&OX4 AND ANSWERS QUESTIONS APPROPRIATELY. PT RECEIVED HS MEDICATIONS, IV WAS LEAKING AND REQUIRED REMOVAL. NEW PERIPHERAL IV ACCESS ESTABLISHED ON PT L WRIST. ROCEPHIN SUCCESSFULLY ADMINISTERED AFTER REESTABLISHING IV ACCESS. PT ASLEEP DURING 0000 DOSE OF TYLENOL, MEDICATION HELD UNTIL PT REQUESTED TYLENOL. PT RUNNING NSR ON TELEMETRY. PT SPENT MOST OF SHIFT WITH EYES CLOSED AND RESPIRATIONS EVEN AND UNLABORED. VSS, NO COMPLAINTS OF CP/PRESSURE OR SOB. NO ACUTE EVENTS AT THIS TIME. PT LEFT IN A POSITION OF SAFETY WITH FALL PRECAUTIONS IN PLACE AND CALL LIGHT IN REACH.
[2023-09-13 07:00] LABS: Bun/Creatinine Ratio 25.9 (12.0-20.0); Creatinine, Blood 0.62 mg/dL (0.40-1.00); Potassium, Blood 4.2 mmol/L (3.5-5.5)
[2023-09-13 07:34] VITALS: BP 155/64
[2023-09-13 11:44] LABS: SARS-Cov-2 (COVID-19) PCR, MMC NEGATIVE (NEGATIVE)
--- NOTE | 2023-09-13 16:12 | NUR ---
PT DISCHARGED REPORT CALL[facility] TO RECRICH RN AT [facility]. PT WAS TRANSFERED VIA WHEELCHAIR ACCOMPANIED BY ESCORT AND HER FAMILY. BELONGINGS RELEASED TO THE FAMILY. PT WAS 1 ASSIST TO THE WHEELCHAIR FOR TRANSFER
[2023-09-13] MEDS ORDERED: SINEMET 25-1001 EAC1 PO (16:38)
[2023-09-13] MEDS ORDERED: ACET500 PO (16:39)
[2023-09-13] MEDS ORDERED: DOCUZEN 8.6-501 EACH PO (16:40)
[2023-09-13] MEDS ORDERED: MIRALAX17 GM PO (16:41)
== END 2023-09-13 15:47 | DRG 480 ==
LOC: ER 20:45 → MEDS 20:46 → ENPENDDIS 09-13 12:24 → MEDS 09-13 15:47
PROVIDERS: Emergency Medicine; Family Medicine; Internal Medicine; Orthopaedic Surgery Sports Medicine; ADMIT Internal Medicine
PROC: 0QS634Z Reposition Right Upper Femur with Internal Fixation Device, Percutaneous Approach (ICD-10-PCS; principal; 2023-09-08 14:30)
DX: S72.001A Fracture of unspecified part of neck of right femur, initial encounter for closed fracture (principal); G93.41 Metabolic encephalopathy; N17.9 Acute kidney failure, unspecified; K59.00 Constipation, unspecified; G20.A1 Parkinson's disease without dyskinesia, without mention of fluctuations; E89.0 Postprocedural hypothyroidism; M81.0 Age-related osteoporosis without current pathological fracture; H57.02 Anisocoria; W19.XXXA Unspecified fall, initial encounter; R62.7 Adult failure to thrive; E86.0 Dehydration; S62.101D Fracture of unspecified carpal bone, right wrist, subsequent encounter for fracture with routine healing; Z88.5 Allergy status to narcotic agent; Z79.890 Hormone replacement therapy; Z79.891 Long term (current) use of opiate analgesic
CPT/HCPCS: 36415; 51702; 70450; 73100; 73502; 73522; 80048; 80053; 81001; 82140; 82550; 82803; 83605; 83880; 84145; 85025; 85610; 87086; 93005; 93010; 96365; 96374-59; 96375; 96376; 97110; 97112; 97162; 97166; 97530; 97535; 99285-25; A9270; C1713; C1769; G0378; J0171; J0690; J0696; J1100; J1170; J1650; J2371; J2405; J2704; J3010; J7030; J7050; J7120; P9612; U0002

== ENCOUNTER → 2023-09-30 | Outpatient (CLI) | payer MEDICARE ==
[~2023-09-30] MED LIST changes: +ACET500 PO; +DOCUZEN 8.6-501 EACH PO; +MIRALAX17 GM PO; +SINEMET 25-1001 EAC1 PO
[2023-09-30 17:57] LABS: Source, Urine Voided
[2023-09-30 18:57] LABS: Appearance, Urine Turbid (Clear); Bilirubin, Urine Neg (Neg); Blood, Urine 5+ (Neg); Color, Urine Brown (P-Yellow); Glucose Qualitative, Urine Neg (Neg); Ketones, Urine 2+ (Neg); Leukocyte Esterase, Urine 3+ (Neg); Nitrite, Urine Pos (Neg); Protein, Urine 3+ (Neg); Specific Gravity, Urine 1.025 (1.003-1.022); Urobilinogen, Urine NORM (Normal)
[2023-09-30 19:33] LABS: Amorphous Light (0-Heavy); Bacteria Many /hpf; Calcium Oxalate Crystals Many /hpf; Mucus Mod (0-Heavy); Squamous Epithelial Cells Few /hpf (Few); Transitional Epithelial Cells Rare /hpf (0-Rare); White Blood Cells, Urine TNTC /hpf (0-5)
[2023-09-30 19:34] LABS: Red Blood Cells, Urine 25-50 /hpf (0-2)
== END | disposition home or self-care (01) ==
LOC: LAB SHORT 17:55 → LAB 17:55
PROVIDERS: Family Medicine
DX: R30.0 Dysuria (principal); R31.9 Hematuria, unspecified
CPT/HCPCS: 81001; 87077; 87086; 87186

== ENCOUNTER → 2024-01-18 | Outpatient (CLI) | payer MEDICARE ==
[2024-01-18 13:33] LABS: Source, Urine Voided
[2024-01-18 15:42] LABS: Bacteria Many /hpf; Calcium Oxalate Crystals Mod /hpf; Squamous Epithelial Cells Few /hpf (Few); White Blood Cells, Urine 25-50 /hpf (0-5)
== END ==
LOC: LAB 13:25 → LAB SHORT 13:25
PROVIDERS: Hospitalist
DX: R30.0 Dysuria (principal)
CPT/HCPCS: 81015; 87077; 87086; 87186

== ENCOUNTER 2024-02-14 07:45 | Emergency (ER) | payer MEDICARE ==
[~2024-02-14] VITALS: Ht 147.3 cm; Wt 47.6 kg
[2024-02-14 08:33] LABS: BASOPHILS ABSOLUTE AUTO 0.06 K/mm3 (0.00-0.23); BASOPHILS PERCENT AUTO 1 % (0-2); EOSINOPHILS ABSOLUTE AUTO 0.09 K/mm3 (0.00-0.68); EOSINOPHILS PERCENT AUTO 2 % (0-6); Hematocrit 38.6 % (33.0-51.0); IMMATURE GRAN ABSOLUTE AUTO 0.02 K/mm3 (0.00-0.10); IMMATURE GRAN PERCENT AUTO 0 % (0-1); LYMPHOCYTES ABSOLUTE AUTO 0.74 K/mm3 (0.84-5.20); LYMPHOCYTES PERCENT AUTO 12 % (21-46); MONOCYTES ABSOLUTE AUTO 0.45 K/mm3 (0.16-1.47); MONOCYTES PERCENT AUTO 7 % (4-13); Mean Corpuscular HGB 23.9 pg (26.0-34.0); Mean Corpuscular HGB Conc 31.1 g/dL (31.5-36.5); Mean Corpuscular Volume 77 fL (80-100); Mean Platelet Volume 9.9 fL (9.1-12.4); NEUTROPHILS ABSOLUTE AUTO 4.72 K/mm3 (1.96-9.15); NEUTROPHILS PERCENT AUTO 78 % (41-73); Platelet Count 197 K/mm3 (150-400); RDW Coefficient Variation 16.9 % (11.7-14.2); Red Blood Cell Count 5.02 M/mm3 (3.80-5.20); White Blood Cell Count 6.08 K/mm3 (4.00-11.30)
[2024-02-14 08:53] LABS: Albumin, Blood 3.6 g/dL (3.4-5.0); Albumin/Globulin Ratio 1.1 (0.8-1.8); Bilirubin, Total 0.8 mg/dL (0.1-1.0); Bun/Creatinine Ratio 14.4 (12.0-20.0); Calcium, Blood 9.4 mg/dL (8.5-10.1); Creatinine, Blood 0.84 mg/dL (0.40-1.00); Globulin, Blood 3.2 g/dL (2.2-4.0); Total Protein, Blood 6.8 g/dL (6.4-8.2)
[2024-02-14] MEDS ORDERED: CARBIDOPA-LEVO1 EA17 (09:10)
[2024-02-14 11:25] VITALS: BP 166/55
== END 2024-02-14 11:48 | disposition home or self-care (01) ==
LOC: ER 07:45
PROVIDERS: Emergency Medicine
DX: R56.9 Unspecified convulsions (principal); G20.A1 Parkinson's disease without dyskinesia, without mention of fluctuations; E03.9 Hypothyroidism, unspecified; Z79.899 Other long term (current) drug therapy; Z88.5 Allergy status to narcotic agent
CPT/HCPCS: 70450; 80053; 85025; 93005; 93010; 99284-25